=== PATIENT | female | born 1995 | race American Indian/Alaskan Native ===

== ENCOUNTER 2019-10-01 19:01 | Emergency (ER) | payer SELFPAY ==
[2019-10-01 19:45] VITALS: BP 114/57
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
--- NOTE | 2019-10-01 21:00 | XRay Report ---
LUMBAR SPINE 2 VIEWS INDICATION / CLINICAL INFORMATION: pain. COMPARISON: None available. FINDINGS: VERTEBRAE: Transitional vertebral anatomy which may be a source of pain. No acute fracture. No signif icant malalignment. DISC SPACES / FACET JOINTS:No significant abnormality. PARASPINAL SOFT TISSUES:No significant abnormality. ADDITIONAL FINDINGS: None. Signer Name: Jin Eng MD Signed: 10/01/2019 8:55 PM Workstation Name: [id number]
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
== END 2019-10-02 02:03 | disposition home or self-care (01) ==
LOC: ED 19:01
DX: S93.401A Sprain of unspecified ligament of right ankle, initial encounter (principal); S16.1XXA Strain of muscle, fascia and tendon at neck level, initial encounter; W30.81XA Contact with agricultural transport vehicle in stationary use, initial encounter; Y93.89 Activity, other specified; Y92.410 Unspecified street and highway as the place of occurrence of the external cause; Y99.8 Other external cause status
CPT/HCPCS: 72040; 72100; 99283